=== PATIENT | male | born 1995 | race Caucasian/White ===

== ENCOUNTER 2017-05-27 15:39 | Emergency (ER) | payer OTHER, BC ==
[2017-05-27 19:33] LABS: BASO # 0.1 10^3/uL (0.0-0.2); BASO % 0.6 % (0.0-1.0); EOS # 0.2 10^3/uL (0.0-0.50); EOS % 1.8 % (0.0-3.0); HEMATOCRIT 38.1 % (42.0-52.0); HEMOGLOBIN 13.2 g/dl (13.5-17.5); IMMATURE GRANULOCYTE % 0.3 % (0-3.0); LYMPH # 2.8 10^3/uL (1.5-6.5); LYMPH % 29.7 % (24.0-44.0); MEAN CORPUSCULAR HEMOGLOBIN 28.9 pg (27.0-33.0); MEAN CORPUSCULAR HGB CONC 34.6 g/dl (32.0-36.5); MEAN CORPUSCULAR VOLUME 83.4 fl (80.0-96.0); MONO # 0.6 10^3/uL (0.0-0.8); MONO % 6.7 % (0.0-5.0); NEUTROPHILS # 5.8 10^3/uL (1.8-7.7); NEUTROPHILS % 60.9 % (36.0-66.0); PLATELET COUNT, AUTOMATED 256 10^3/uL (150-450); RED BLOOD COUNT 4.57 10^6/uL (4.30-6.10); RED CELL DISTRIBUTION WIDTH 12.5 % (11.5-14.5); WHITE BLOOD COUNT 9.5 10^3/uL (4.0-10.0)
[2017-05-27] MEDS: [UNRECOGNIZED DRUG - OTHER] IM ×2 (19:37)
[2017-05-27] MEDS: HEPATITIS B IMMUNE GLOBULIN 5ML INJ (J1571) IM ×2 (19:39)
[2017-05-27 19:54] LABS: ALBUMIN/GLOBULIN RATIO 1.11 (1.00-1.93); ALKALINE PHOSPHATASE 86 U/L (45-117); ALT/SGPT 46 U/L (12-78); ANION GAP 6 MEQ/L (8-16); AST/SGOT 28 U/L (7-37); BILIRUBIN,TOTAL 0.3 MG/DL (0.2-1.0); BLOOD UREA NITROGEN 18 MG/DL (7-18); CALCIUM LEVEL 8.4 MG/DL (8.5-10.1); CARBON DIOXIDE LEVEL 26 MEQ/L (21-32); CHLORIDE LEVEL 110 MEQ/L (98-107); CREATININE FOR GFR 1.41 MG/DL (0.70-1.30); GLOMERULAR FILTRATION RATE > 60.0 (>60); GLUCOSE, FASTING 93 MG/DL (70-100); POTASSIUM SERUM 3.9 MEQ/L (3.5-5.1); SODIUM LEVEL 142 MEQ/L (136-145); TOTAL PROTEIN 7.6 GM/DL (6.4-8.2)
[2017-05-27 20:43] LABS: HIV 1&2 SCREEN CENTAUR NEGATIVE (NEGATIVE)
[2017-05-29 11:18] LABS: HEPATITIS B SURFACE ANTIBODY NEGATIVE (POSITIVE)
[2017-05-29 11:29] LABS: HEPATITIS B SURFACE ANTIGEN NEGATIVE (NEGATIVE)
[2017-05-29 11:56] LABS: HEPATITIS C VIRUS ABY INDEX 0.1 INDEX (<0.8)
== END 2017-05-27 19:57 | disposition home or self-care (01) ==
LOC: M ED 15:39
DX: S60.511A Abrasion of right hand, initial encounter (principal); S60.512A Abrasion of left hand, initial encounter; W50.4XXA Accidental scratch by another person, initial encounter; Y93.F9 Activity, other caregiving; Y92.59 Other trade areas as the place of occurrence of the external cause; Z20.5 Contact with and (suspected) exposure to viral hepatitis
CPT/HCPCS: 90471; 90744

== ENCOUNTER 2020-06-20 14:08 | Emergency (ER) | payer OTHER, BC ==
[~2020-06-20] VITALS: Ht 195.6 cm; Wt 128.6 kg
[2020-06-20 14:09] VITALS: BP 121/70
--- NOTE | 2020-06-20 15:03 | REP ---
INDICATION: Fall injury COMPARISON: None. TECHNIQUE: Four views right ankle. FINDINGS: There is no evidence of acute fracture, dislocation, or intrinsic bone disease.There is mild lateral soft tissue swelling. The ankle mortise is anatomic. IMPRESSION: No fracture or dislocation. <Electronically signed by Ger Montes > 06/20/20 [id number]
[2020-06-20] MEDS ORDERED: KETOROLAC TROMETHAMINE 10 MG TAB PO ONE (15:15)
== END 2020-06-20 15:41 | disposition home or self-care (01) ==
LOC: M ED 14:08
DX: S93.401A Sprain of unspecified ligament of right ankle, initial encounter (principal); X58.XXXA Exposure to other specified factors, initial encounter; Y92.10 Unspecified residential institution as the place of occurrence of the external cause; Y93.89 Activity, other specified; Y99.0 Civilian activity done for income or pay; M25.562 Pain in left knee; F17.290 Nicotine dependence, other tobacco product, uncomplicated

== ENCOUNTER → 2020-08-19 | Outpatient (CLI) | payer OTHER ==
--- NOTE | 2020-08-19 16:20 | REP ---
INDICATION: PAIN IN LEFT KNEE. COMPARISON: Radiographs 07/04/2020. TECHNIQUE: Multiple sequences obtained in the axial, coronal and sagittal planes. FINDINGS: Menisci: Intact, no tear. Cruciate ligaments: Intact. Collateral ligaments: Intact. Extensor mechanism/patellar retinacula: There is an area of ill-defined high signal on T2 weighted images in the patellar tendon with adjacent edematous signal along the tendon consistent with a mild partial tear. Cartilage: Smooth, no osteochondral defect. Bone marrow: Normal signal, no edema or occult fracture. Joint fluid: There is a very small joint effusion. Popliteal region: There is a very small amount of fluid in the medial popliteal fossa. IMPRESSION: Findings compatible with mild partial tear of the patellar tendon. <Electronically signed by Ger Montes > 08/19/20 [id number]
== END ==
LOC: M RAD 15:03
PROVIDERS: ATTEND Orthopaedic Surgery Adult Reconstructive Orthopaedic Surgery
DX: M25.562 Pain in left knee (principal)

== ENCOUNTER 2023-10-08 17:59 | Emergency (ER) | payer OTHER ==
[~2023-10-08] VITALS: Ht 182.9 cm; Wt 118.2 kg
[2023-10-08 19:19] LABS: BASO # 0.1 10^3/uL (0.0-0.2); BASO % 0.7 % (0.0-1.0); EOS # 0.2 10^3/uL (0.0-0.5); HEMATOCRIT 38.9 % (42.0-52.0); HEMOGLOBIN 13.4 g/dl (13.5-17.5); LYMPH # 2.2 10^3/uL (1.5-5.0); LYMPH % 24.3 % (24.0-44.0); MEAN CORPUSCULAR HEMOGLOBIN 29.4 pg (27.0-33.0); MEAN CORPUSCULAR HGB CONC 34.4 g/dl (32.0-36.5); MEAN CORPUSCULAR VOLUME 85.3 fl (80.0-96.0); MONO # 0.6 10^3/uL (0.0-0.8); MONO % 6.5 % (2.0-8.0); NEUTROPHILS % 66.3 % (36.0-66.0); PLATELET COUNT, AUTOMATED 276 10^3/uL (150-450); RED BLOOD COUNT 4.56 10^6/uL (4.30-6.10)
[2023-10-08 19:38] LABS: LIPASE 36 U/L (12-53)
[2023-10-08 19:40] LABS: ALBUMIN 4.4 G/DL (3.2-5.2); ALKALINE PHOSPHATASE 69 U/L (46-116); ALT/SGPT 57 U/L (7.0-40); AST/SGOT 38 U/L (<34); BILIRUBIN,DIRECT 0.1 MG/DL (<0.4); BILIRUBIN,TOTAL 0.4 MG/DL (0.3-1.2); BLOOD UREA NITROGEN 21 MG/DL (9-23); CALCIUM LEVEL 9.4 MG/DL (8.5-10.1); CARBON DIOXIDE LEVEL 26 MMOL/L (20-31); CHLORIDE LEVEL 107 MMOL/L (98-107); CREATININE FOR GFR 1.09 MG/DL (0.70-1.30); GLOMERULAR FILTRATION RATE > 60.0 (>60); GLUCOSE, FASTING 91 MG/DL (60-100); POTASSIUM SERUM 3.9 MMOL/L (3.5-5.1); SODIUM LEVEL 139 MMOL/L (136-145); TOTAL PROTEIN 7.1 G/DL (5.7-8.2)
[2023-10-09 01:01] VITALS: BP 123/77; TEMP 97.9; O2SAT 99
== END 2023-10-09 01:07 | disposition home or self-care (01) ==
LOC: M ED 17:59
DX: R10.814 Left lower quadrant abdominal tenderness (principal); F17.200 Nicotine dependence, unspecified, uncomplicated; R19.7 Diarrhea, unspecified